=== PATIENT | female | born 1995 | race Caucasian/White ===

== ENCOUNTER 2017-08-20 19:55 | Emergency (ER) | payer OTHER, MEDICAID ==
[~2017-08-20] VITALS: Ht 162.6 cm; Wt 86.4 kg
[2017-08-20 20:25] VITALS: BP 110/79
--- NOTE | 2017-08-20 20:30 | NUR ---
TO LOBBY A/W FOR BED, HUSSAIN NOTED ,VS STABLE
--- NOTE | 2017-08-20 23:50 | NUR ---
PATIENT CALLED TO PUT ON BED, EDWARD
--- NOTE | 2017-08-21 | NUR ---
CALLED FOR SECOND TIME, NO ANSWER
--- NOTE | 2017-08-21 00:11 | NUR ---
CALLED [facility] THIRD TIME NO RESPONSE, PATIENT LEFT WITHOUT BEING SEEN BY DR. KNOTT. NO FURTHER CARE PROVIDED FOR PATIENT.
== END 2017-08-21 00:11 | disposition left against medical advice (07) ==
LOC: MED 19:55
DX: M54.5 Low back pain (principal); Z53.21 Procedure and treatment not carried out due to patient leaving prior to being seen by health care provider